=== PATIENT | female | born 1955 | race Caucasian/White ===

== ENCOUNTER 2018-09-28 13:30 | Emergency (ER) | payer MEDICAID, OTHER ==
[~2018-09-28] VITALS: Ht 160 cm; Wt 65.8 kg
[2018-09-28] MEDS ORDERED: AMOX1TAB61 PO (14:15)
--- NOTE | 2018-09-28 14:15 | PHYS DOC ---
Adult General Chief Complaint Chief Complaint: ANIMAL BITE HPI HPI 63-year-old female presents with dog bite on the right side of her face. She was visiting her son a local intermediate. She was petting a dog that she has pet several times in the past. She did not know that the dog was recently diagnosed with an ear infection. She rubbed the dogs ears and it lunged at her and bit her in the face. The patient's wound is just below her right eye. It did have some moderate bleeding, but was controlled prior to arrival. The patient's tetanus is not up to date. The dog is part of a intermediate program, and is presumed to be up-to-date on shots. The patient is not certain about this. Proper intermediate authorities were notified. Patient denies any other concerns or complaints. Review of Systems Review of Systems Constitutional: Denies fever or chills [] Eyes: Denies change in visual acuity, redness, or eye pain [] HENT: Denies nasal congestion or sore throat [] Respiratory: Denies cough or shortness of breath [] Cardiovascular: No additional information not addressed in HPI [] GI: Denies abdominal pain, nausea, vomiting, bloody stools or diarrhea [] : Denies dysuria or hematuria [] Musculoskeletal: Denies back pain or joint pain [] Integument: Skin tear right face[] Neurologic: Denies headache, focal weakness or sensory changes [] Endocrine: Denies polyuria or polydipsia [] All other systems were reviewed and found to be within normal limits, except as documented in this note. Physical Exam Physical Exam Constitutional: Well developed, well nourished, no acute distress, non-toxic appearance. [] HENT: Normocephalic, atraumatic, bilateral external ears normal, oropharynx moist, no oral exudates, nose normal. [] Eyes: PERRLA, EOMI, conjunctiva normal, no discharge. [] Neck: Normal range of motion, no tenderness, supple, no stridor. [] Cardiovascular:Heart rate regular rhythm, no murmur [] Lungs & Thorax: Bilateral breath sounds clear to auscultation [] Abdomen: Bowel sounds normal, soft, no tenderness, no masses, no pulsatile masses. [] Skin: Patient has a 2 cm V-shaped skin tear just below her right eye. The skin is well approximated. There is an additional 4 cm superficial linear abrasion below this. 3 small round abrasions on the left chin.[] Back: No tenderness, no CVA tenderness. [] Extremities: No tenderness, no cyanosis, no clubbing, ROM intact, no edema. [] Neurologic: Alert and oriented X 3, normal motor function, normal sensory function, no focal deficits noted. [] Psychologic: Affect normal, judgement normal, mood normal. [] EKG EKG [] Radiology/Procedures Radiology/Procedures [] Course & Med Decision Making Course & Med Decision Making Pertinent Labs and Imaging studies reviewed. (See chart for details) I have washed out the patient's wound with normal saline under pressure. Given this is an animal bite, I will not close it. There is good skin approximation without intervention. I will give the patient a tetanus shot in the ED and discharge her with a prescription for Augmentin for 7 days. She is stable for discharge at this time. [] Dragon Disclaimer Dragon Disclaimer This electronic medical record was generated, in whole or in part, using a voice recognition dictation system. Departure Departure: Impression: Primary Impression: Dog bite of face Disposition: HOME, SELF-CARE Condition: STABLE Referrals: SALOMON CRISOSTOMO (PCP) Patient Instructions: Animal Bite, [id number] Scripts Amoxicillin/Potassium Clav (AUGMENTIN 875-125 TABLET) 1 Each Tablet 1 TAB PO BID for dog bite, #14 TAB Prov: TAMIKA MORTON DO 09/28/18 Problem Qualifiers Primary Impression: Dog bite of face Encounter type: initial encounter Qualified Codes: S01.85XA - Open bite of other part of head, initial encounter; W54.0XXA - Bitten by dog, initial encounter TAMIKA MORTON DO Sep 28, 2018 14:15
[2018-09-28] MEDS ORDERED: DIPHTH,PERTUSS(ACELL),TET TOX 0.5 ML DISP.SYRIN. VAX IM ONE (14:30)
[2018-09-28 17:11] VITALS: BP 129/69
== END 2018-09-28 14:29 | disposition home or self-care (01) ==
LOC: ER 13:30
DX: S01.111A Laceration without foreign body of right eyelid and periocular area, initial encounter (principal); S00.81XA Abrasion of other part of head, initial encounter; W54.0XXA Bitten by dog, initial encounter; Y93.89 Activity, other specified; Y92.149 Unspecified place in prison as the place of occurrence of the external cause; Y99.8 Other external cause status
CPT/HCPCS: 90471; 90715; 99283-25